=== PATIENT | male | born 1995 | race Caucasian/White ===

== ENCOUNTER 2017-12-11 13:37 | Outpatient (CLI) | payer OTHER ==
[~2017-12-11] VITALS: Ht 182.9 cm; Wt 70.8 kg
[2017-12-11] MEDS ORDERED: ZANTAC150 MG ORAL (14:47)
[2017-12-11] MEDS ORDERED: PROCHLORPERAZINE5 MG ORAL (14:47)
[2017-12-11 14:48] VITALS: BP 117/70
--- NOTE | 2017-12-11 16:26 | GI Initial Consult Note ---
History of Present Illness General Date patient seen: Dec 11, 2017 Time patient seen: 16:21 Referring physician: CAMRYN KIDD Reason for Consultation: Abdominal Pain Present Illness HPI 22 year old male patient with known history of asthma and depression, presents today with epigastric pain x 2 months. This patient had recent admission to [facility], where he had continuous nausea and occasional vomiting. Work up was negative and the patient was discharged home. Pt recently had EGD performed with unremarkable findings. A CT performed at [facility] where the patient was dx with mesenteric adenitis. He currently has c/o abdominal pain, GERD, N/V, and headache. States he has had 20 lbs weight loss. No signs of abuse or neglect. Patient is not fall risk. Home Meds Reported Medications Prochlorperazine Maleate* (COMPAZINE*) 5 Mg Tablet, 5 MG ORAL TID, TAB 0 Refills 12/11/17 Ranitidine Hcl* (ZANTAC*) 150 Mg Tablet, 150 MG ORAL TWICE A DAY, TAB 12/11/17 Allergies: Coded Allergies: ACETAMINOPHEN (Verified Allergy, Intermediate, Hives, 12/11/17) Patient History History Provided By: Patient, Medical Record [facility] Narrative Asthma Depression No Surgical History Pertinent Family History: none Social History: Reports: alcohol use - occasional use Review of Systems All Other Systems: negative except mentioned in HPI Physical Exam Vital Signs Date Time Temp Pulse Resp B/P (MAP) Pulse Ox O2 Delivery O2 Flow Rate FiO2 12/11/17 14:48 98.1 72 16 117/70 98 98.1 Sp02 EP Interpretation: reviewed, normal General Appearance: well appearing, no apparent distress, alert Head: normocephalic EENT: PERRL/EOMI, normal ENT inspection Neck: supple Respiratory: normal breath sounds, no respiratory distress Cardiovascular: normal rate Gastrointestinal: normal inspection, non tender, soft, normal bowel sounds, non -distended Rectal: deferred Genitourinary: deferred Musculoskeletal: normal inspection, back normal Neurologic: normal inspection, alert, oriented x3, responsive Psychiatric: normal inspection, judgement/insight normal, memory normal Skin: normal inspection, normal color, no rash, warm/dry, palpation normal, well hydrated Lymphatic: normal inspection, no adenopathy GI: Plan Problems: (1) Epigastric pain (2) GERD (gastroesophageal reflux disease) (3) Depression (4) Asthma (5) Mesenteric adenitis (6) Nausea & vomiting (7) Migraine Plan will obtain repeat CT and EGD pending PA Rx Omeprazole 20mg, Reglan 10mg RTC x [address] Nelson. Thank you for this patient referral. The patient was seen and examined at bedside and all new and available data was reviewed in the patients chart. I agree with the above findings, impression and plan. (Patient seen earlier today. Signature stamp does not reflect patient encounter time.). - MD Belinda AraujoCobalt Rehabilitation ([facility]) HospitalDerrek [facility]PER[facility] Dec 11, 2017 16:26
== END 2017-12-11 14:10 | disposition home or self-care (01) ==
LOC: PAN 13:37
DX: R10.13 Epigastric pain (principal); K21.9 Gastro-esophageal reflux disease without esophagitis; F32.9 Major depressive disorder, single episode, unspecified; J45.909 Unspecified asthma, uncomplicated; I88.0 Nonspecific mesenteric lymphadenitis; R11.2 Nausea with vomiting, unspecified; G43.909 Migraine, unspecified, not intractable, without status migrainosus; Z88.6 Allergy status to analgesic agent
CPT/HCPCS: 99201